=== PATIENT | female | born 1965 | race Caucasian/White ===

== ENCOUNTER 2019-01-06 17:20 | Observation (INO) ==
[2019-01-06 18:25] LABS: ALLEN TEST YES; BE -11.8 mmoll (-3.0-3.0); BLOOD TYPE ARTERIAL; HCO3-(ACT) 15.5 mmoll (20.0-26.0); METHB 1.5 % (0.0-1.5); MODALITY ROOM AIR; O2(CT) 19.4 mL/dL (15.0-23.0); O2HB 91.6 % (95.0-99.0); PCO2(98.6) 26 mmHg (35-45); PO2(98.6) 94 mmHg (60-100); SAMPLE BLOOD; SAO2 97.1 % (95.0-100.0)
--- NOTE | 2019-01-06 19:36 | Diag Imaging Result Doc PS360 ---
CHEST-2 VIEWS - 01/06/2019 INDICATION: short of breath COMPARISON: None FINDINGS: The lungs are normally expanded and clear. Heart size and mediastinal contours are normal. No pneumothorax or pleural effusion. IMPRESSION: Negative exam. Electronically signed by Og Haney 01/06/2019 7:33 PM
[2019-01-06 19:42] LABS: URINE SOURCE CLEAN CATCH
[2019-01-06 19:42] LABS: BASO# 0.02 X1000 (0.0-0.2); BASO% 0.2 % (0.0-0.8); EOS# 0.08 X1000 (0.0-0.7); EOS% 0.9 % (0.0-10.0); HEMATOCRIT 45.7 % (37.0-47.0); HEMOGLOBIN 15.1 g/dL (12.0-16.0); IMM GRAN# 0.04 X1000 (0.0-0.04); IMM GRAN% 0.5 % (0.0-0.5); LYMPH# 2.67 X1000 (1.2-3.4); LYMPH% 30.3 % (20.5-51.1); MCH 27.5 PG (27-31); MCV 83.1 FL (81-99); MONO# 0.71 X1000 (0.11-0.59); MONO% 8.1 % (1.7-9.3); MPV 10.1 FL (7.4-10.4); NEUT# 5.28 X1000 (1.4-6.5); PLT 274 X1000 (130-400); RDW 16.4 % (11.5-14.5)
[2019-01-06 19:50] LABS: UR EPITHELIAL CELLS <10 /HPF (<10); URINE BACTERIA 4+ /HPF
[2019-01-06 19:54] LABS: BILIRUBIN URINE NEGATIVE (NEGATIVE); BLOOD URINE NEGATIVE (NEGATIVE); COLOR YELLOW; GLUCOSE URINE >1000 mg/dL (NEGATIVE); KETONE URINE 80 mg/dL (NEGATIVE); LEUKOCYTES URINE NEGATIVE (NEGATIVE); NITRITE URINE NEGATIVE (NEGATIVE); PROTEIN URINE NEGATIVE (NEGATIVE); SP GRAVITY URINE 1.019; TURBIDITY URINE CLEAR (CLEAR); UROBILINOGEN URINE NORMAL (NORMAL)
[2019-01-06 19:55] LABS: ACETONE SERUM MODERATE (NEGATIVE)
[2019-01-06] MEDS ORDERED: TYLENOL PO ONE (20:02)
[2019-01-06 20:06] LABS: AGAP 23; ALB/GLOB RATIO 1.1; ALBUMIN 4.2 g/dL (3.5-5.0); ALKALINE PHOSPHATASE 175 U/L (32-104); BUN 21 mg/dL (8-22); CALCIUM 9.3 mg/dL (8.8-10.2); CHLORIDE 95 mmol/L (98-107); COSMO 289; ESTIMATED GFR 58; GLUCOSE 385 mg/dL (70-104); GOT 6 U/L (10-30); GPT 9 U/L (10-36); POTASSIUM 4.8 mmol/L (3.5-5.1); SODIUM 135 mmol/L (136-145); TCO2 17 mmol/L (25-35); TOTAL BILIRUBIN 0.19 mg/dL (0.20-1.00); TOTAL PROTEIN 8.1 g/dL (6.3-8.3)
[2019-01-06] MEDS ORDERED: NS 1,000 ML IV ONE (20:14)
[2019-01-06] MEDS ORDERED: HUMULIN R IV ONE (20:14)
--- NOTE | 2019-01-06 22:26 | PROVIDER DOCUMENTATION ---
This chart was entered by Stephanie Garcia Scribe, acting as scribe for Olivia Topete MD. HPI-General Adult - General Chief Complaint: DKA ALERT Stated Complaint: SINUS INFECTION/EAR PAIN Time Seen by Provider: 01/06/19 19:22 Source: patient Allergies/Adverse Reactions: Patient Allergies Allergy/AdvReac Type Severity Reaction Status Date / Time Penicillins Allergy ANAPHYLAXIS Verified 01/06/19 19:28 - History of Present Illness -Gen Adult Nature of Presenting Problems: 53 y/o female presents to ED with pressure-like sinus pain, ear pain, body aches, fatigue, urinary frequency, and headache onset 4 days ago. Pt also reports her blood sugars have been between 350-400 for "a while now." Pt states she has hx previous DKA hospitalizations and wants to be checked for DKA. Pt reports she is currently taking trulicity and farxiga for management of her diabetes. She spoke to her PCP about how these medications are not controlling her. Pt is alert and oriented. Location of Pain/Injury: reports: generalized Pain Radiation: reports: no radiation Quality of Pain: reports: aching Severity: reports: mild Onset/Duration: reports: 4 days ago Timing: reports: still present Context/Activities at Onset: reports: none Modifying Factors: improves with: nothing Associated Symptoms: reports: fatigue, headaches, other (sinus pain; ear pain; hyperglycemia; body aches; urinary frequency) Similar Symptoms Previously?: No Recently seen or treated by another doctor?: No - Diabetes Related Context Context: reports: high blood sugar, prior DKA hospitalization Review of Systems - Adult - REVIEW OF SYSTEMS - ADULT Constitutional: reports: fatique, other (hyperglycemia). denies: chills, fever Eyes: reports: no symptoms reported Ears, Nose, Mouth & Throat: reports: ear pain, sinus problem Cardiovascular: denies: chest pain, palpitations Respiratory: denies: cough, shortness of breath Gastrointestinal: denies: abdominal pain, diarrhea, nausea, vomiting Genitourinary: reports: frequency. denies: incontinence Musculoskeletal: reports: other (body aches). denies: back pain, joint pain Integumentary: reports: no symptoms reported Neurological: reports: headache/migraines. denies: dizziness/vertigo, seizure Psychiatric: reports: no symptoms reported Endocrine: reports: other (hyperglycemia). denies: goiter Hematologic/Lymphatic: reports: no symptoms reported Allergic/Immunologic: reports: no symptoms reported All Other Systems: Reviewed and Negative Past History - Adult - PAST MEDICAL HISTORY-ADULT Review of Records: reports: Old Records Reviewed, Nursing Assessment Review, Medications Reviewed Major Childhood Illnesses: reports: denies history Endocrine/Immune: reports: Diabetes - PRIOR SURGERIES/PROCEDURES Surgical/Procedure History: reports: none - IMMUNIZATION STATUS Childhood Immunizations: See Nurse Assessment Flu Vaccine: See Nurse Assessment - FAMILY HISTORY Family History: reviewed, not pertinent - SOCIAL HISTORY Smoking: non-smoker Substance Use: none/never Alcohol Use Frequency: never Living Situation: family Physical Exam-General - PHYSICAL EXAM-ADULT Initial Vital Signs Reviewed: Yes - CONSTITUTIONAL General Appearance: appears well, alert, no apparent distress - EYES Eyes: PERRL/EOMI, pink conjunctivae - HEAD, EARS, NOSE, MOUTH & THROAT HENMT: normocephalic/atraumatic, moist mucous membranes, TM obscurred by cerumen (R) - NECK Neck: non-tender, full range of motion - RESPIRATORY Respiratory: chest non-tender, lungs clear, normal breath sounds - CARDIOVASCULAR Cardiovascular: normal peripheral pulses, regular rate, rhythm - GASTROINTESTINAL (ABDOMEN) Abdominal Exam: normal bowel sounds, non tender, soft - MUSCULOSKELETAL Back Exam: normal inspection, no CVA tenderness, no vertebral tenderness Extremity: normal range of motion, non-tender, normal gait - SKIN Integumentary: normal color, warm/dry - NEUROLOGIC Neurologic: grossly normal - PSYCHIATRIC Psych/Mental Status: normal mood/affect, normal thought content, normal thought process, oriented x 3 Progress - PLAN OF CARE/RESULTS Progress/Plan/Lab Results: Vital Signs - 8 hr 01/06/19 17:35 Temperature 97.9 F Pulse Rate 98 H Respiratory Rate 18 Blood Pressure 120/75 O2 Sat by Pulse Oximetry 98 Laboratory Results - last 24 hr 01/06/19 01/06/19 17:43 18:15 Specimen Type ARTERIAL Sample Site R RADIAL pH 7.30 L pCO2 26 L pO2 94 HCO3 15.5 L Base Excess -11.8 L Oxyhemoglobin 91.6 L ABG O2 Sat (Calculated) 19.4 ABG O2 Saturation 97.1 ABG Carboxyhemoglobin 4.20 H ABG Methemoglobin 1.5 Jorje Test YES A-a O2 Difference 23.0 Total Hemoglobin 15.0 Lactate 0.80 Blood Gas Modality ROOM AIR FiO2 % 21.0 POC Glucose 342 H Orders Category Date Time Status Blood Glucose Finger Stick [FSBS/Accucheck Result] NOW Care 01/06/19 19:23 Active CHEST-2 VIEWS [RAD] Stat Exams 01/06/19 19:22 Taken ABG [RESP] Routine Lab 01/06/19 18:15 Completed ABG [RESP] Routine Lab 01/06/19 19:22 Ordered ACETONE SERUM [CHEM] Stat Lab 01/06/19 19:20 Received CBC WITH ELECTRONIC DIFF [HEME] Stat Lab 01/06/19 19:20 Results COMPREHENSIVE METABOLIC PANEL [CHEM] Stat Lab 01/06/19 19:20 Received URINALYSIS W/POSS RFLX CULT [URINALYSIS] Stat Lab 01/06/19 19:24 Ordered Laboratory Tests 01/06/19 01/06/19 01/06/19 17:43 18:15 19:04 WBC RBC Hgb Hct MCV MCH MCHC RDW Std Deviation Plt Count MPV Immature Gran % (Auto) Neut % (Auto) Lymph % (Auto) [place] % (Auto) Eos % (Auto) Baso % (Auto) Immature Gran # (Auto) Neut # (Auto) Lymph # (Auto) [place] # (Auto) Eos # (Auto) Baso # (Auto) Specimen Type ARTERIAL Sample Site R RADIAL pH 7.30 L pCO2 26 L pO2 94 HCO3 15.5 L Base Excess -11.8 L Oxyhemoglobin 91.6 L ABG O2 Sat (Calculated) 19.4 ABG O2 Saturation 97.1 ABG Carboxyhemoglobin 4.20 H ABG Methemoglobin 1.5 Jorje Test YES A-a O2 Difference 23.0 Total Hemoglobin 15.0 Lactate 0.80 Blood Gas Modality ROOM AIR FiO2 % 21.0 Sodium Potassium Chloride Carbon Dioxide Anion Gap BUN Creatinine Estimated GFR/1.73 m2 BUN/Creatinine Ratio Glucose POC Glucose 342 H Calculated Osmolality Calcium Total Bilirubin AST ALT Alkaline Phosphatase Total Protein Albumin Globulin Albumin/Globulin Ratio Urine Source CLEAN CATCH Urine Color YELLOW Urine Turbidity CLEAR Urine pH 5.0 Ur Specific [place] 1.019 Urine Protein NEGATIVE Ur Glucose (Stick) >1000 A Ur Ketones (Stick) 80 A Urine Blood NEGATIVE Urine Nitrite NEGATIVE Urine Bilirubin NEGATIVE Urobilinogen Dipstick NORMAL Urine Leukocytes NEGATIVE Urine WBC (Auto) 10-20 A Urine RBC (Auto) 10-20 A U Epithel Cells (Auto) <10 Urine Bacteria (Auto) 4+ Acetone Level 01/06/19 01/06/19 19:20 19:20 WBC 8.80 RBC 5.50 H Hgb 15.1 Hct 45.7 MCV 83.1 MCH 27.5 MCHC 33.0 RDW Std Deviation 16.4 H Plt Count 274 MPV 10.1 Immature Gran % (Auto) 0.5 Neut % (Auto) 60.0 Lymph % (Auto) 30.3 [place] % (Auto) 8.1 Eos % (Auto) 0.9 Baso % (Auto) 0.2 Immature Gran # (Auto) 0.04 Neut # (Auto) 5.28 Lymph # (Auto) 2.67 [place] # (Auto) 0.71 H Eos # (Auto) 0.08 Baso # (Auto) 0.02 Specimen Type Sample Site pH pCO2 pO2 HCO3 Base Excess Oxyhemoglobin ABG O2 Sat (Calculated) ABG O2 Saturation ABG Carboxyhemoglobin ABG Methemoglobin Jorje Test A-a O2 Difference Total Hemoglobin Lactate Blood Gas Modality FiO2 % Sodium 135 L Potassium 4.8 Chloride 95 L Carbon Dioxide 17 L Anion Gap 23 BUN 21 Creatinine 1.0 H Estimated GFR/1.73 m2 58 BUN/Creatinine Ratio 21 Glucose 385 H POC Glucose Calculated Osmolality 289 Calcium 9.3 Total Bilirubin 0.19 L AST 6 L ALT 9 L Alkaline Phosphatase 175 H Total Protein 8.1 Albumin 4.2 Globulin 3.9 Albumin/Globulin Ratio 1.1 Urine Source Urine Color Urine Turbidity Urine pH Ur Specific [place] Urine Protein Ur Glucose (Stick) Ur Ketones (Stick) Urine Blood Urine Nitrite Urine Bilirubin Urobilinogen Dipstick Urine Leukocytes Urine WBC (Auto) Urine RBC (Auto) U Epithel Cells (Auto) Urine Bacteria (Auto) Acetone Level MODERATE A Patient with borderline acidosis to 7.3, moderate acetone in blood. CO2 17. AG 23. Given 1L NS and 5U IV insulin and glucose came down to 221. Spoke to Dr Hakeem carr about admission, advised hold off insulin drip. Will admit and further orders to be placed by their team. Result Diagrams: 01/06/19 19:20 01/06/19 19:20 - XRAY 1 XRAY Study: Chest Impression: See EMR Report ([facility] - [address], [address], [place] [address] [facility] - [address] [place] [address] Department of Imaging Patient: PATRICIA TELLOADM Date: 01/06/19#: [id number] : 1965ADM Status: PRE ERAcct#: [id number] Age/Sex: 53/FRoom/Bed: Loc: ED Ordering Physician: Olivia Topete MD Family Physician: Karan Clements MD Reason for Procedure: short of breath Signed CHEST-2 VIEWS - 01/06/2019 INDICATION: short of breath COMPARISON: None FINDINGS: The lungs are normally expanded and clear. Heart size and mediastinal contours are normal. No pneumothorax or pleural effusion. IMPRESSION: Negative exam. Electronically signed by Og Haney 01/06/2019 7:33 PM 01/06/191932 Interpreting Physician: Og Haney MD Dictated Date/Time: 01/06/191932 cc: Olivia Topete MD; Karan Clements MD) - CONSULTS/PCP/HOSPITALIST Notification #1 *Consult/PCP/Hospitalist*: Dr. Sykes Time Discussed: 22:19 Reason/Comments: DKA; dehydration; hyperglycemia Consult Disposition: Admit Departure - Departure Date of Disposition Decision: 01/06/19 Time of Disposition Decision: 22:18 DIAGNOSIS: Dehydration, Hyperglycemia DKA (diabetic ketoacidoses) Qualifiers: Diabetes mellitus type: other specified (including MONSE) Diabetes mellitus complication detail: without coma Qualified Code(s): E13.10 - Other specified diabetes mellitus with ketoacidosis without coma Disposition: ADMITTED INPATIENT 09 Certified Medical Emergency: Emergent Condition: Stable Referrals and Follow-Ups: Karan Clements MD [Primary Care Provider] - - Critical Care Note This patient required my direct & personal management of CC.: No Attestation - Physician/ SELENA Attestation Patient care was provided by Advanced Practice Provider:: No The physician spent face to face time with patient:: Yes Advanced Practice Provider documentation review:: Supervising physician onsite and consulted in the evaluation and care of this patient. The physician did have a face to face encounter with the patient. This chart was documented by the indicated scribe, (Stephanie Garcia, Melody) and accurately reflects the services I performed and decisions made by me, Olivia Topete MD, as attested by the provider's signature.
[2019-01-07] MEDS ORDERED: ZOFRAN IV PRN (01:53)
[2019-01-07] MEDS: NS 1,000 ML IV SCH ×4 (02:58→23:54)
[2019-01-07] MEDS ORDERED: HUMULIN R SUBQ SCH (07:00)
--- NOTE | 2019-01-07 07:48 | HISTORY AND PHYSICAL ---
PRIMARY CARE PHYSICIAN: Dr. Clements. CHIEF COMPLAINT: Not feeling well, congestion, elevated blood glucose. HISTORY OF PRESENTING ILLNESS: A 53-year-old female with a history of diabetes mellitus type 2, hyperlipidemia, coronary artery disease, hypertension, who presented to emergency department with several days history of not feeling well. She states her blood sugars were running in the 300 to 400 ranges and she felt nauseated. The patient states that she has been in DKA in the past and was concerned, and subsequently had come to the emergency department. In the ED she was evaluated. It was noted that she was hyperglycemic and suspected possibly early DKA. Due to her presenting symptoms, we will place her for observation for further evaluation and management. At the time of my examination, patient denied any headache, fever, chills, chest pain, shortness of breath, hemoptysis, melena, any weight changes, but complained of not feeling well. PAST MEDICAL HISTORY: Includes diabetes mellitus type 2, hyperlipidemia, coronary artery disease, hypertension. PAST SURGICAL HISTORY: Coronary stent, hysterectomy. ALLERGIES: Penicillin. CURRENT MEDICATIONS: She does not recall and nursing staff will reconcile. SOCIAL HISTORY: A 20+ pack-year history of smoking. Denies any history of alcohol or illicit drug use. FAMILY HISTORY: Positive for coronary artery disease in mother. REVIEW OF SYSTEMS: Fourteen point review of systems is as in HPI. Other systems negative. PHYSICAL EXAMINATION: GENERAL: Cooperative, friendly female. She is resting more comfortably now. VITAL SIGNS: Temperature 97.9 degrees, pulse 98, respiration 18, blood pressure 120/75. HEENT: Atraumatic, normocephalic. Extraocular movements intact. PERRLA. NECK: Supple. CHEST: Clear to auscultation. CARDIOVASCULAR: Regular rate and rhythm. ABDOMEN: Soft. Positive bowel sounds. EXTREMITIES: No edema. NEUROLOGIC: She is awake, alert, oriented x3. : No bladder distention. SKIN: Warm. LABS: WBCs 8.80 hemoglobin 15.1, hematocrit 45.7, platelets 274. Sodium 135, potassium 4.8, chloride 95, CO2 17. BUN is 21, creatinine 1.0, glucose is 385. Urine tract shows moderate acetone. Blood gases shows a pH of 7.30. ASSESSMENT: This is a 53-year-old female with a history of diabetes mellitus type 2, coronary artery disease, hypertension, who presented to emergency department with several days history of having elevated blood glucose and not feeling well. She was evaluated in the emergency department and, due to presenting symptoms, it was thought that we will place her for observation for further evaluation and management. ASSESSMENT: 1. Diabetes mellitus type 2 with hyperglycemia. Suspect early diabetic ketoacidosis. 2. Hyperlipidemia. 3. Sinus congestion. 4. Coronary artery disease. 5. Hypertension. PLAN: 1. We will admit patient to medical floor with telemetry. 2. We will start patient on a moderate sliding scale insulin regimen. 3. We will continue with IV fluids. 4. We will restart home medications. 5. Use Flonase for sinus condition. 6. We will monitor blood pressure closely. 7. Put patient on DVT prophylaxis with SCD. 8. We will continue to follow and reassess. Make further recommendation based on patient's clinical course. cc: Raul Sykes MD
[2019-01-07 08:04] LABS: BASO# 0.01 X1000 (0.0-0.2); BASO% 0.1 % (0.0-0.8); EOS# 0.08 X1000 (0.0-0.7); HEMOGLOBIN 13.2 g/dL (12.0-16.0); IMM GRAN# 0.02 X1000 (0.0-0.04); IMM GRAN% 0.2 % (0.0-0.5); LYMPH# 2.59 X1000 (1.2-3.4); LYMPH% 31.2 % (20.5-51.1); MCH 27.9 PG (27-31); MCV 84.6 FL (81-99); MONO# 0.64 X1000 (0.11-0.59); MONO% 7.7 % (1.7-9.3); MPV 9.9 FL (7.4-10.4); NEUT# 4.96 X1000 (1.4-6.5); NEUT% 59.8 % (42.2-75.2); PLT 226 X1000 (130-400); RBC 4.73 XMIL (4.2-5.4); RDW 16.3 % (11.5-14.5)
[2019-01-07 08:35] LABS: ESTIMATED GFR > 60
[2019-01-07 08:46] LABS: AGAP 20; BUN 11 mg/dL (8-22); CALCIUM 8.7 mg/dL (8.8-10.2); CHLORIDE 104 mmol/L (98-107); COSMO 281; CREATININE 0.7 mg/dL (0.5-0.9); GLUCOSE 202 mg/dL (70-104); POTASSIUM 4.5 mmol/L (3.5-5.1); SODIUM 138 mmol/L (136-145); TCO2 14 mmol/L (25-35)
[2019-01-07] MEDS: FLONASE NAS SCH (10:06)
[2019-01-07] MEDS ORDERED: NON-FORMULARY MED (Dulaglutide [Trulicity] 0 MG) SUBQ SCH (11:00)
[2019-01-07] MEDS ORDERED: HUMALOG SUBQ SCH (11:00)
[2019-01-07] MEDS ORDERED: NON-FORMULARY MED (Dapagliflozin Propanediol [Farxiga] 0 MG) PO SCH (11:00)
[2019-01-07] MEDS: TOPROL XL PO SCH (12:36)
[2019-01-07] MEDS: HYDROCHLOROTHIAZIDE PO SCH (12:36)
[2019-01-07] MEDS: LEVAQUIN 750 MG/D5W 750 MG/150 ML IVPB IV SCH (12:38)
[2019-01-07] MEDS: PATIENT'S OWN MED PO SCH (12:38)
[2019-01-07] MEDS ORDERED: SODIUM PHOSPHATE 30 MMOL in D5W 250 ML IV PRN (12:44)
[2019-01-07] MEDS ORDERED: D50W SYRINGE IV PRN (12:44)
[2019-01-07] MEDS ORDERED: HUMULIN R IV ONE (12:44)
[2019-01-07] MEDS ORDERED: HUMULIN R 100 UNIT in NS 100 ML IV SCH (12:45)
[2019-01-07] MEDS: TYLENOL PO PRN (12:59)
[2019-01-07 13:43] LABS: AGAP 18; BUN 8 mg/dL (8-22); CALCIUM 8.2 mg/dL (8.8-10.2); CHLORIDE 105 mmol/L (98-107); COSMO 284; CREATININE 0.6 mg/dL (0.5-0.9); ESTIMATED GFR > 60; GLUCOSE 236 mg/dL (70-104); MAGNESIUM 1.9 mg/dL (1.5-2.7); PHOSPHORUS 2.2 mg/dL (2.7-4.5); POTASSIUM 3.7 mmol/L (3.5-5.1); SODIUM 139 mmol/L (136-145); TCO2 16 mmol/L (25-35)
[2019-01-07] MEDS: ZITHROMAX 500 MG/NS 500 MG/250 ML IVPB IV SCH (14:15)
[2019-01-07] MEDS ORDERED: MISC. PHARMACY COMMUNICATION SCH (15:00)
[2019-01-07] MEDS: POTASSIUM CHLORIDE 20 MEQ in NS 100 ML IV PRN (15:36)
[2019-01-07 16:21] LABS: ALLEN TEST NO; BE -9.9 mmoll (-3.0-3.0); BLOOD TYPE ARTERIAL; HCO3-(ACT) 17.1 mmoll (20.0-26.0); METHB 1.6 % (0.0-1.5); O2(CT) 16.9 mL/dL (15.0-23.0); O2HB 93.6 % (95.0-99.0); PCO2(98.6) 31 mmHg (35-45); PO2(98.6) 77 mmHg (60-100); SAMPLE BLOOD; SAO2 96.2 % (95.0-100.0); THB 12.8 g/dL (11.5-17.4)
[2019-01-07 16:23] LABS: MODALITY ROOM AIR
[2019-01-07] MEDS: POTASSIUM CHLORIDE 10 MEQ in D5 NS 1,000 ML IV PRN (18:08)
[2019-01-07 20:21] LABS: AGAP 15; CHLORIDE 108 mmol/L (98-107); POTASSIUM 3.7 mmol/L (3.5-5.1); SODIUM 139 mmol/L (136-145); TCO2 16 mmol/L (25-35)
[2019-01-07 20:22] LABS: BUN 9 mg/dL (8-22); CALCIUM 8.3 mg/dL (8.8-10.2); COSMO 282; CREATININE 0.7 mg/dL (0.5-0.9); ESTIMATED GFR > 60; GLUCOSE 200 mg/dL (70-104); MAGNESIUM 2.1 mg/dL (1.5-2.7); PHOSPHORUS 2.1 mg/dL (2.7-4.5)
[2019-01-07] MEDS ORDERED: ZANTAC PO SCH (21:00)
[2019-01-07] MEDS ORDERED: NEURONTIN PO SCH (21:00)
[2019-01-08 00:08] LABS: AGAP 14; BUN 6 mg/dL (8-22); CALCIUM 8.2 mg/dL (8.8-10.2); CHLORIDE 106 mmol/L (98-107); COSMO 284; CREATININE 0.6 mg/dL (0.5-0.9); ESTIMATED GFR > 60; GLUCOSE 250 mg/dL (70-104); MAGNESIUM 1.9 mg/dL (1.5-2.7); PHOSPHORUS 1.8 mg/dL (2.7-4.5); POTASSIUM 3.2 mmol/L (3.5-5.1); SODIUM 139 mmol/L (136-145); TCO2 19 mmol/L (25-35)
[2019-01-08] MEDS ORDERED: POTASSIUM CHLORIDE 10% LIQUID PO ONE ×2 (00:50→05:25)
[2019-01-08 04:36] LABS: AGAP 12; BUN 5 mg/dL (8-22); CALCIUM 8.2 mg/dL (8.8-10.2); CHLORIDE 108 mmol/L (98-107); COSMO 280; CREATININE 0.5 mg/dL (0.5-0.9); ESTIMATED GFR > 60; GLUCOSE 193 mg/dL (70-104); MAGNESIUM 1.9 mg/dL (1.5-2.7); POTASSIUM 3.4 mmol/L (3.5-5.1); SODIUM 139 mmol/L (136-145); TCO2 19 mmol/L (25-35)
[2019-01-08] MEDS: POTASSIUM CHLORIDE 10 MEQ in D5 NS 1,000 ML IV PRN (05:18)
[2019-01-08] MEDS: TYLENOL PO PRN (06:08)
[2019-01-08] MEDS ORDERED: SODIUM PHOSPHATE 35 MMOL in NS 250 ML IV ONE (08:00)
[2019-01-08 08:44] LABS: AGAP 13; BUN 5 mg/dL (8-22); CALCIUM 8.4 mg/dL (8.8-10.2); CHLORIDE 109 mmol/L (98-107); COSMO 282; CREATININE 0.5 mg/dL (0.5-0.9); ESTIMATED GFR > 60; GLUCOSE 193 mg/dL (70-104); POTASSIUM 3.9 mmol/L (3.5-5.1); SODIUM 140 mmol/L (136-145); TCO2 18 mmol/L (25-35)
[2019-01-08] MEDS: FLONASE NAS SCH (08:44)
[2019-01-08] MEDS: PATIENT'S OWN MED PO SCH (08:45)
[2019-01-08] MEDS: HYDROCHLOROTHIAZIDE PO SCH (08:45)
[2019-01-08] MEDS: TOPROL XL PO SCH (08:45)
[2019-01-08] MEDS ORDERED: ASPIRIN EC PO SCH (09:00)
[2019-01-08] MEDS ORDERED: VITAMIN B-12 SL SCH (09:00)
[2019-01-08 11:10] VITALS: BP 127/61
[2019-01-08] MEDS: POTASSIUM CHLORIDE 20 MEQ in NS 100 ML IV PRN (11:27)
[2019-01-08 11:54] LABS: AGAP 14; BUN 5 mg/dL (8-22); CALCIUM 8.1 mg/dL (8.8-10.2); CHLORIDE 109 mmol/L (98-107); COSMO 283; CREATININE 0.5 mg/dL (0.5-0.9); ESTIMATED GFR > 60; GLUCOSE 174 mg/dL (70-104); POTASSIUM 3.5 mmol/L (3.5-5.1); SODIUM 141 mmol/L (136-145); TCO2 18 mmol/L (25-35)
[2019-01-08] MEDS: ZITHROMAX 500 MG/NS 500 MG/250 ML IVPB IV SCH (13:19)
[2019-01-08] MEDS: LEVAQUIN 750 MG/D5W 750 MG/150 ML IVPB IV SCH (13:19)
[2019-01-08] MEDS ORDERED: LIPITOR PO SCH (21:00)
--- NOTE | 2019-01-09 09:42 | DISCHARGE SUMMARY ---
ADMISSION DATE: 01/07/2019 DISCHARGE DATE: 01/08/2019 DISCHARGE DIAGNOSES: 1. Diabetes mellitus type 2 with hyperglycemia with early diabetic ketoacidosis. 2. Hyperglycemia. 3. Right inner ear infection. 4. Coronary artery disease. 5. Hypertension. PROCEDURE: Chest x-ray shows negative exam. HOSPITAL COURSE: In brief, this is a 53-year-old female with history of diabetes mellitus type 2, hyperlipidemia, coronary artery disease, hypertension, who presented to the emergency department complaining of several days of not feeling well. She said that her blood sugars have been running on the high side at 300 to 400. She felt nauseated and actually she felt like when she had the DKA, so she was admitted for that specific concern. Lab-lechuga shows elevated anion gap with low bicarbonate, so I decided to start her on insulin drip for 24 hours. Then, the bicarbonate improved some. Blood sugar has been much better controlled in the range of 100 to 150s. We have discussed with this patient that probably that right middle ear infection that she had is probably playing a role in this not well-controlled diabetes mellitus. So, at this point she is going to be discharged with home medication. She is supposed to talk with her primary care physician about either continuing with the same home medications or restart long-acting insulin or not. At this time, she is going to be discharged in stable condition. DISCHARGE PHYSICAL EXAMINATION: Vital signs: Temperature 98.3, heart rate 76, respiratory rate 23, blood pressure 127/61, O2 saturation 96% on room air. General examination: This is a 53-year- old female lying in bed in no acute distress. HEENT: Head is normocephalic, atraumatic. Right middle ear with yellowish secretion. On examination, I was not able to see the completely the eardrum. I did not see any perforation. I do see some yellowish secretion and some wax all over there. Cardiovascular exam: S1, S2 heard. No murmurs, gallops, or rubs. Regular rate and rhythm. Respiratory exam: Clear bilaterally to auscultation. No work of breathing or using accessory muscles. Abdomen: Soft. Nontender to palpation. Bowel sounds present. No organomegaly. Extremities: No clubbing, cyanosis, or edema. Peripheral pulses present in both legs. Neurological exam: The patient is alert, oriented x3. Moves 4 extremities. DISCHARGE DISPOSITION: 1. Home to self-care. 2. Follow up with his primary care doctor, Dr. Karan Clements, in a week. LIST OF MEDICATIONS: 1. Zithromax 500 mg 1 tablet p.o. daily for 5 days. 2. Ranitidine 300 mg 1 tablet p.o. daily. 3. Atorvastatin 40 mg 1 tablet p.o. daily. 4. Farxiga 10 mg 1 tablet p.o. daily. 5. Gabapentin 300 mg 1 tablet p.o. at bedtime. 6. Lisinopril 2.5 mg 1 tablet p.o. daily. 7. Metoprolol 25 mg 1 tablet p.o. daily. 8. Omeprazole 1 tablet p.o. daily. 9. Trulicity 0.75 mg weekly. 10. Potassium 99 mg p.o. daily. 11. Aspirin 81 mg 1 tablet p.o. daily. 12. Furosemide 20 mg 1 tablet p.o. before meals. 13. Cyanocobalamin 1 tablet p.o. daily. TIME DISCHARGING THIS PATIENT: 33 minutes. cc: Andrea Alcaraz MD
== END 2019-01-08 15:17 | disposition home or self-care (01) ==
LOC: 3N 17:20 → ED 17:20 → SUATTDRO 01-07 01:18 → 3N 01-07 01:28 → 3S 01-07 15:01
PROVIDERS: ATTEND Internal Medicine
CPT/HCPCS: 71020; 71046; 80048; 80053; 81001; 82009; 82805; 82948; 83735; 84100; 85025; 87088; A9270; J0456; J1815; J1956; J3480; J7030; J7042; J7050; XXXXX